=== PATIENT | male | born 1960 | race Caucasian/White ===

== ENCOUNTER → 2018-01-14 | Outpatient (CLI) | payer OTHER | LOC: COL.RAD 08:15 | DX: T18.5XXA Foreign body in anus and rectum, initial encounter (principal); N40.0 Benign prostatic hyperplasia without lower urinary tract symptoms; N32.89 Other specified disorders of bladder | CPT/HCPCS: Q9967 ==

== ENCOUNTER → 2021-11-11 | Outpatient (CLI) | payer OTHER | LOC: ZCOL.LAB 15:54 | DX: U07.1 COVID-19 (principal) ==